=== PATIENT | male | born 1960 | race Two or more races ===

== ENCOUNTER 2024-06-23 08:48 | Outpatient (CLI) | payer OTHER | END 2024-06-23 08:56 | disposition home or self-care (01) | LOC: SONOGRAMA 08:48 | PROVIDERS: ATTEND Surgery | DX: K40.30 Unilateral inguinal hernia, with obstruction, without gangrene, not specified as recurrent (principal) ==

== ENCOUNTER → 2024-10-17 | Day surgery (SDC) | payer OTHER ==
[2024-10-10 07:32] VITALS: BP 150/88
[2024-10-10 08:04] LABS: BASO % 1.0 % (0.1-1.2); EOS # 0.27 (0.04-0.54); EOS % 5.6 % (0.7-7.0); LYMPH # 1.82 (1.18-3.74); LYMPH % 38.0 % (19.3-53.1); MEAN PLATELET VOLUME 10.20 fl (9.4-12.4); MONO # 0.51 (0.24-0.82); MONO % 10.6 % (4.7-12.5); NEUT # 2.14 (1.56-6.13); NEUT % 44.8 % (34.0-71.1); RED CELL DISTRIBUTION WIDTH 13.8 % (11.6-14.4)
[2024-10-10 08:11] LABS: URINE APPEARANCE Clear; URINE BILIRRUBIN Negative (NEGATIVE); URINE BLOOD Negative; URINE COLOR Yellow; URINE GLUCOSE Negative (NEGATIVE); URINE KETONE Negative (NEGATIVE); URINE LEUKOCYTE Negative; URINE NITRATE Negative; URINE PROTEIN Negative (NEGATIVE); URINE UROBILINOGEN 1.0 E.U./dl
[2024-10-10 08:15] LABS: URINE BACTERIA 105.5 uL (0.0-1933); URINE EPITHELIAL CELLS 3.9 uL (0.0-38.8); URINE RBC 16.2 uL (0.0-20.8); URINE WBC 8.0 uL (0.0-23.2)
[2024-10-10 08:40] LABS: URINE CAST 0.00 uL (0.0-1.40)
[2024-10-10 08:45] LABS: INR 0.98
[2024-10-10 09:03] LABS: ALT/SGPT 27.0 U/L (12-78); AST/SGOT 19.0 U/L (15-37); BILIRUBIN TOTAL 0.51 mg/dL (0.3-1.2); BUN CREA RATIO 20.0 (7.0-25.0); CREATININE SERUM 0.84 mg/dL (0.70-1.30); GFR 91.42; GLOBULINA 3.3 G/DL (2.4-3.5); GLUCOSE FASTING 101.0 mg/dL (65-100); OSMOLALITY SERUM 289.0 MOSM/KG (275-295)
[~2024-10-17] VITALS: Ht 170.2 cm; Wt 83.0 kg
[~2024-10-17] MED LIST: CALTRATE 600 +1 EAC1 PO; CARVEDILOL ER40 MG; CIPROFLOXACIN IN 5 % DEXTROSE 400 MG/200 ML PIGGYBAG IV ONE; CLONAZEPAM0.5 MG PO; ECOTRIN81 MG PO; PRESERVISION A1 EAC1 PO; SIMVASTATIN5 MG; SUGAMMADEX SODIUM 200 MG/2 ML VIAL IV ONE; SUPPLEMENT
[2024-10-17 23:01] VITALS: BP 157/78; O2SAT 100
== END | disposition home or self-care (01) ==
LOC: ADM 10-12 07:00 → CIR.AMB 06:04
PROVIDERS: ATTEND Surgery
DX: K40.30 Unilateral inguinal hernia, with obstruction, without gangrene, not specified as recurrent (principal)